=== PATIENT | male | born 1975 | race Caucasian/White ===

== ENCOUNTER 2017-11-05 21:48 | Emergency (ER) | payer BC ==
--- NOTE | 2017-11-05 22:49 | ED ---
Laceration/Wound HPI - HPI Summary HPI Summary: 42-year-old male presents with laceration to left eyelid today. He states he was trying to cut his dogs nails and the dog cut his eye. He denies any change in vision. He denies any active bleeding. No other injury. immunizations are up-to-date. He is not diabetic. - History of Current Complaint Stated Complaint: LT EYELID LAC Time Seen by Provider: 11/05/17 22:15 Pain Intensity: 0 - Allergy/Home Medications Allergies/Adverse Reactions: Allergies Allergy/AdvReac Type Severity Reaction Status Date / Time Penicillins Allergy Mild Hives Verified 11/05/17 21:53 PMH/Surg Hx/FS Hx/Imm Hx Endocrine/Hematology History: Denies: Hx Diabetes, Hx Systemic Lupus Erythematosus Cardiovascular History: Reports: Hx Hypertension - NORVASC, Other Cardiovascular Problems/Disorders - Hx HTN Denies: Hx Congestive Heart Failure History: Reports: Other Problems/Disorders - LEFT Testicular CA Denies: Hx Dialysis, Hx Renal Disease Musculoskeletal History: Denies: Hx Rheumatoid Arthritis Sensory History: Denies: Hx Contacts or Glasses, Hx Hearing Aid Opthamlomology History: Denies: Hx Contacts or Glasses - Cancer History Cancer Type, Location and Year: testicular Hx Chemotherapy: Yes - Surgical History Surgery Procedure, Year, and Place: L orchiectomy with lymph nodes removed Hx Anesthesia Reactions: No Infectious Disease History: No Infectious Disease History: Denies: Traveled Outside the [place] in Last 30 Days - Family History Known Family History: Positive: Hypertension - Social History Alcohol Use: Weekly Alcohol Amount: 12/DAY 2X/WEEK Substance Use Type: Reports: None Smoking Status (MU): Former Smoker Amount Used/How Often: PACK/DAY Review of Systems Negative: Fever Negative: Chest Pain Negative: Shortness Of Breath Positive: Other - left eyelid laceration All Other Systems Reviewed And Are Negative: Yes Physical Exam Triage Information Reviewed: Yes Vital Signs On Initial Exam: Initial Vitals Temp Pulse Resp BP Pulse Ox 97.9 F 92 16 134/78 95 11/05/17 21:50 11/05/17 21:50 11/05/17 21:50 11/05/17 21:50 11/05/17 21:50 Vital Signs Reviewed: Yes Appearance: Positive: Well-Appearing Skin: Positive: Warm, Dry Head/Face: Positive: Normal Head/Face Inspection Eyes: Positive: Normal, EOMI, TIERA, Conjunctiva Clear, Other: - 4cm by 1/4cm laceration of left eyelid ENT: Positive: Normal ENT inspection, Pharynx normal, TMs normal Respiratory/Lung Sounds: Positive: Clear to Auscultation, Breath Sounds Present Cardiovascular: Positive: Normal, RRR Musculoskeletal: Positive: Normal Neurological: Positive: Normal Psychiatric: Positive: Normal Procedures - Laceration/Wound Repair 1 Location: face Description: Linear Anesthesia: Local, 1.0%, Epi Length, Depth and Shape: 4cm by 1/4cm Irrigated w/ Saline (ccs): 500 Laceration/Wound Explored: no foreign body removed Closure: Single Layer Suture Type: Prolene Number of Sutures: 5 Diagnostics - Vital Signs Vital Signs Temp Pulse Resp BP Pulse Ox 11/05/17 21:50 97.9 F 92 16 134/78 95 - Laboratory Lab Statement: Any lab studies that have been ordered have been reviewed, and results considered in the medical decision making process. Laceration Repair Course/Dx - Course Course Of Treatment: 42-year-old male presents with laceration to left eyelid today. He states he was trying to cut his dogs nails and the dog cut his eye. He denies any change in vision. He denies any active bleeding. No other injury. immunizations are up-to-date. He is not diabetic. on exam has 4cm by 1/4cm laceration to left eyelid. cleaned area and placed 5 suture. patient understand and agrees with plan. - Differential Dx Differental Diagnoses: Abrasion, Avulsion, Laceration - Clinical Impression Provider Diagnoses: Facial laceration Discharge - Sign-Out/Discharge Documenting (check all that apply): Patient Departure - Discharge Plan Condition: Good Disposition: HOME Patient Education Materials: Care For Your Stitches (ED) Referrals: Pepe Estes MD [Primary Care Provider] - Additional Instructions: Keep area clean and dry for 24 hours Take Tylenol or ibuprofen for pain every 6 hours Return to ED or primary for suture removal in 5 days Return to ED if develop signs of infection such as fever, spreading redness, or pus formation - Billing Disposition and Condition Condition: GOOD Disposition: Home
[2017-11-05 23:03] VITALS: BP 134/79
== END 2017-11-05 23:02 | disposition home or self-care (01) ==
LOC: ED 21:48
DX: S01.112A Laceration without foreign body of left eyelid and periocular area, initial encounter (principal); W54.1XXA Struck by dog, initial encounter; Y93.K9 Activity, other involving animal care; Y92.9 Unspecified place or not applicable; I10 Essential (primary) hypertension; Z88.0 Allergy status to penicillin; Z87.891 Personal history of nicotine dependence
CPT/HCPCS: 12013; 99282

== ENCOUNTER 2020-06-22 05:59 | Inpatient (IN) ==
[2020-06-22] MEDS ORDERED: Buffered Lidocaine 1% SYRIN 1 ml INTRADERM ONE (06:00)
[2020-06-22] MEDS ORDERED: Lactated Ringers 1000 ml BAG 1,000 ML IV SCH (06:00)
[2020-06-22] MEDS ORDERED: Clindamycin 900 MG/D5W BAG 900 MG/50 ML BAG IVPB ONE (06:19)
[2020-06-22] MEDS ORDERED: Heparin 5000 UNITS/ML 1 mL VIAL ONE (06:19)
[2020-06-22] MEDS ORDERED: Midazolam 2 mg/2 ml VIAL 1 mg/ml 2 ml VIAL (2 mg) ONE (07:08)
[2020-06-22] MEDS ORDERED: HYDROmorphone 1 MG/1 ML SYRINGE ONE ×2 (07:08→09:55)
[2020-06-22] MEDS ORDERED: Phenylephrine IV 10 MG/ML 1 ml VIAL ONE (07:11)
[2020-06-22] MEDS ORDERED: Rocuronium 50 mg VIAL 10 mg/ml 5 ml VIAL (50 mg) ONE (07:11)
[2020-06-22] MEDS ORDERED: Propofol 10 MG/ML 20 ML BTL ONE ×3 (07:11→08:10)
[2020-06-22] MEDS ORDERED: Ondansetron 4 mg VIAL 2 MG/ML 2 ml VIAL ONE ×2 (07:11→10:22)
[2020-06-22] MEDS ORDERED: Glycopyrrolate IV 0.2 MG/ML 1 ML VIAL ONE ×2 (07:11→08:10)
[2020-06-22] MEDS ORDERED: Lidocaine 2% PF 5 ML VIAL ONE (07:11)
[2020-06-22] MEDS ORDERED: Dexamethasone IV 4 MG/ML VIAL 1 ml VIAL ONE (07:11)
[2020-06-22] MEDS ORDERED: Bupivacaine 0.25% SDV 30 ML ONE (07:12)
[2020-06-22] MEDS ORDERED: EPHEDrine (Pressors) 50 MG/ML VIAL ONE (08:11)
[2020-06-22] MEDS ORDERED: fentaNYL 100 mcg/2 ml 50 MCG/ML VIAL IV PRN (08:38)
[2020-06-22] MEDS ORDERED: Naloxone 0.4 mg VIAL 0.4 mg/ml 1 ml VIAL IV PRN (08:38)
[2020-06-22] MEDS ORDERED: DiMENhydriNATE IV 50 mg/ml 1 ml VIAL IV PUSH PRN (08:38)
[2020-06-22] MEDS ORDERED: Acetaminophen IV 1 GM/100ML 1,000 MG/100 ML VIAL IVPB PRN (08:38)
[2020-06-22] MEDS ORDERED: Ondansetron 4 mg VIAL 2 MG/ML 2 ml VIAL IV PRN ×2 (08:38→19:17)
[2020-06-22] MEDS ORDERED: Acetaminophen IV 1 GM/100ML 100 ML ONE (09:16)
[2020-06-22] MEDS ORDERED: HYDROcodone/ACET. 7.5/325 LIQ 15 ML UDC PO PRN (09:33)
[2020-06-22] MEDS ORDERED: Dextrose 50% Syringe 50 ml 25 GM/50 ML SYRINGE IV PUSH PRN (09:37)
[2020-06-22] MEDS: HYDROmorphone 1 MG/1 ML SYRINGE IV PRN ×3 (09:55→10:23)
[2020-06-22] MEDS: Lactated Ringers 1000 ml BAG 1,000 ML IV SCH ×2 (11:00→17:55)
[2020-06-22] MEDS: HYDROmorphone 0.5 MG/0.5 ML SYRINGE IV SLOW PU PRN ×2 (16:28→21:24)
[2020-06-22] MEDS: Heparin 5000 UNITS/ML 1 mL VIAL SUBCUT SCH (21:24)
[2020-06-23] MEDS: Lactated Ringers 1000 ml BAG 1,000 ML IV SCH ×2 (01:13→07:52)
[2020-06-23] MEDS: HYDROmorphone 0.5 MG/0.5 ML SYRINGE IV SLOW PU PRN (04:29)
[2020-06-23] MEDS: Heparin 5000 UNITS/ML 1 mL VIAL SUBCUT SCH ×2 (05:28→14:05)
[2020-06-23] MEDS ORDERED: D5W 1/2 NS KCl 20 meq 1000 ml 1,000 ML IV SCH (10:00)
[2020-06-23 15:26] VITALS: BP 143/84
== END 2020-06-23 15:47 | disposition home or self-care (01) ==
LOC: AA 05:59 → SSU 10:49
PROVIDERS: ADMIT Surgery; ATTEND Surgery